=== PATIENT | female | born 1945 | race Caucasian/White ===

== ENCOUNTER → 2016-12-11 | Outpatient (CLI) | payer OTHER ==
[2016-12-11 12:35] LABS: ALT/SGPT 23 U/L (12-78); BLOOD UREA NITROGEN 27 mg/dl (7-18); BUN/CREATININE RATIO 24.4 (10-20); CARBON DIOXIDE 27 mmol/L (21-32); CHLORIDE 106 mmol/L (98-107); CHOLESTEROL 248 mg/dl (0-200); GLUCOSE 89 mg/dl (70-99); SODIUM 140 mmol/L (136-145); TRIGLYCERIDES 100 mg/dl (0-150); VERY LOW DENSITY LIPOPROT CALC 20 mg/dl
[2016-12-11 12:39] LABS: ALB/GLOB RATIO 1.1 (0.9-2); ALKALINE PHOSPHATASE 60 U/L (45-117); AST/SGOT 15 U/L (15-37); CHOLESTEROL/HDL RATIO 3.3; HDL CHOLESTEROL 75 mg/dl; LDL CHOLESTEROL CALCULATED 153 mg/dl
[2016-12-11 12:48] LABS: CALCIUM 9.4 mg/dl (8.5-10.1)
== END | disposition home or self-care (01) ==
LOC: C.LABPBG 09:16
PROVIDERS: ATTEND Family Medicine
DX: E78.5 Hyperlipidemia, unspecified (principal); I12.9 Hypertensive chronic kidney disease with stage 1 through stage 4 chronic kidney disease, or unspecified chronic kidney disease; N18.3 Chronic kidney disease, stage 3 (moderate); Z11.59 Encounter for screening for other viral diseases

== ENCOUNTER → 2017-01-14 | Outpatient (CLI) | payer OTHER | END | disposition home or self-care (01) | LOC: C.MAMM 15:15 | PROVIDERS: ATTEND Nurse Practitioner Adult Health | DX: M85.851 Other specified disorders of bone density and structure, right thigh (principal); M85.852 Other specified disorders of bone density and structure, left thigh ==

== ENCOUNTER → 2017-01-16 | Outpatient (CLI) | payer OTHER | LOC: C.PAPS 16:20 | PROVIDERS: ATTEND Obstetrics & Gynecology | DX: Z12.4 Encounter for screening for malignant neoplasm of cervix (principal) ==

== ENCOUNTER → 2017-06-11 | Outpatient (CLI) | payer OTHER ==
[2017-06-11 12:49] LABS: ALT/SGPT 23 U/L (12-78); AST/SGOT 15 U/L (15-37); BLOOD UREA NITROGEN 24 mg/dl (7-18); BUN/CREATININE RATIO 21.8 (10-20); CALCIUM 9.1 mg/dl (8.5-10.1); CARBON DIOXIDE 28 mmol/L (21-32); CHLORIDE 104 mmol/L (98-107); CREATININE 1.09 mg/dl (0.60-1.20); GLUCOSE 83 mg/dl (70-99); POTASSIUM 3.8 mmol/L (3.5-5.1); SODIUM 138 mmol/L (136-145)
[2017-06-11 12:52] LABS: ALKALINE PHOSPHATASE 58 U/L (45-117); CHOLESTEROL 232 mg/dl (0-200); CHOLESTEROL/HDL RATIO 2.8; HDL CHOLESTEROL 83 mg/dl; LDL CHOLESTEROL CALCULATED 133 mg/dl; TRIGLYCERIDES 78 mg/dl (0-150); VERY LOW DENSITY LIPOPROT CALC 16 mg/dl
== END | disposition home or self-care (01) ==
LOC: C.LABPBG 09:56
PROVIDERS: ATTEND Family Medicine
DX: I12.9 Hypertensive chronic kidney disease with stage 1 through stage 4 chronic kidney disease, or unspecified chronic kidney disease (principal); N18.3 Chronic kidney disease, stage 3 (moderate); E78.5 Hyperlipidemia, unspecified; M19.90 Unspecified osteoarthritis, unspecified site; E55.9 Vitamin D deficiency, unspecified

== ENCOUNTER → 2017-06-27 | Outpatient (CLI) | payer OTHER ==
--- NOTE | 2017-06-27 14:34 | MAMMOGRAPHY REPORT ---
BILATERAL DIGITAL SCREENING MAMMOGRAM WITH CAD: 06/27/2017 CLINICAL HISTORY: Routine screening. TECHNIQUE: Current study was also evaluated with a Computer Aided Detection (CAD) system. Bilateral CC and MLO views were obtained. COMPARISON: Comparison is made to exams dated: 06/25/2016 mammogram, 02/04/2014 mammogram, 02/03/2013 m ammogram, 02/01/2012 mammogram, 03/27/2011 mammogram - [facility], and 10/28/2007. BREAST COMPOSITION: There are scattered areas of fibroglandular density in both breasts. FINDINGS: No suspicious masses, calcifications, or areas of architectural distortion are noted in ei ther breast. There has been no significant interval change compared to prior exams. Scattered bilate ral benign-appearing calcifications are not significantly changed. Round benign-appearing 9 mm mass in the left lateral anterior breast is stable compared to multiple prior exams. Other bilateral asym metries are stable. IMPRESSION: ACR BI-RADS CATEGORY 2: BENIGN There is no mammographic evidence of malignancy. A 1 year screening mammogram is recommended. The pa tient will receive written notification of the results. Approximately 10% of breast cancers are not detected with mammography. A negative mammographic report should not delay biopsy if a clinically suggestive mass is present. Jessica Sellers M.D. ah/:06/27/2017 11:29:29 Nursing Project Coordinator: Layo SEO(Ofelia)(M), [facility] letter sent: Normal 1/2 BI-RADS Code: ACR BI-RADS Category 2: Benign
== END | disposition home or self-care (01) ==
LOC: C.MAMM 09:58
PROVIDERS: ATTEND Family Medicine
DX: Z12.31 Encounter for screening mammogram for malignant neoplasm of breast (principal)

== ENCOUNTER 2020-03-06 19:48 | Observation (INO) ==
[2020-03-06] MEDS ORDERED: DEXAMETHASONE SOD INJ 10 MG/ML VIAL IV ONE (19:58)
[2020-03-06] MEDS ORDERED: FAMOTIDINE 20MG IV PUSH 20 MG/5 ML SYR IV STA (19:58)
[2020-03-06] MEDS ORDERED: DiphenhydrAMINE HCL 50 MG/ML VIAL IV STA (19:58)
[2020-03-06] MEDS ORDERED: SODIUM CHLORIDE 0.9% 250 ML IV PRN (20:14)
--- NOTE | 2020-03-06 20:29 | Emergency Department Note ---
Impression & Plan Angioedema ED Provider Note NAME: EITAN KIRKPATRICK AGE: 74 SEX: F : 1945 ARRIVES VIA: Walk-In INFORMANT: Patient, ED PROVIDER(S): Tramaine Woodard DO CHIEF COMPLAINT: Sore throat HPI: The patient is a 74-year-old female who presented to the emergency department for an evaluation of sore throat. The patient states approximately 2 PM today she started noticing sore throat. Patient also started noticing that her tongue was starting to swell. She denies having any nausea or vomiting. She denies having any chest pain. At this time she states that she has no difficulty breathing but she did have some throat tightness. She states the symptoms have already started to decrease in intensity. She did not take any medications prior to arrival. She did not call her family doctor. The patient states that she has taken no new medications over the last 48 hours. She denies using any NSAIDs recently. The patient does take an SHYAM inhibitor for her blood pressure but she has been taking his medication for many years. ROS: See above HPI for pertinent positives & negatives. A total of 10 systems reviewed and were otherwise negative. PAST MEDICAL HISTORY: See Below PAST SURGICAL HISTORY: See Below FAMILY HISTORY: See Below SOCIAL HISTORY: See Below HOME MEDICATIONS: See Below ALLERGIES: See Below VITALS: See Below PHYSICAL EXAMINATION: GENERAL: Patient is awake alert in no acute distress patient is resting comfortably and showing no signs of anxiety EYES: The conjunctivae are clear. The pupils are round and reactive. EARS, NOSE, MOUTH AND THROAT: Anterior angioedema involving the tongue was noted. The posterior oropharynx appears to be uninvolved at this time. NECK: The neck is nontender and supple. There is anterior tenderness but no swelling. RESPIRATORY: Normal respiratory effort is noted there is no evidence of wheezing rhonchi or rales CARDIOVASCULAR: Regular rate and rhythm noted there no murmurs rubs or gallops normal S1 normal S2. GASTROINTESTINAL: The abdomen is soft. Abdomen is nontender. MUSCULOSKELETAL/EXTREMITIES: There is no evidence of gross deformity full range of motion is noted in the hips and shoulders. SKIN: Pedal edema was noted bilaterally. NEUROLOGIC: Patient is awake alert and oriented x3. MEDICAL DECISION MAKING: The patient is a 74-year-old female who presented to the emergency department w ith sore throat. On physical exam patient was suffering from angioedema. To my evaluation she admitted to no new foods but on evaluation by the hospitalist group she was found to be eating a different brand of nuts. The patient also takes an SHYAM inhibitor. She was treated with steroids Benadryl H2 blockers as well as FFP in the emergency department. She was reevaluated multiple times. The patient's angioedema appears to be stable at this time and is not worsening. I discussed the patient's laboratory and radiographic studies with her. I also discussed some of the causes for angioedema. At this time I do feel the patient may be a good candidate for inpatient management given that she has involvement of her tongue. She was agreeable to this plan. I discussed her case with the on-call [facility] hospitalist group. They have agreed to evaluate the patient in the emergency department for further management and disposition. Triage Nursing notes reviewed. Prior medical records reviewed Vital Signs: reviewed and remarkable for no significant abnormalities Differential diagnosis: Viral syndrome, angioedema, tonsillitis, streptococcal pharyngitis, mononucleosis, peritonsillar abscess, retropharyngeal abscess, otitis, pneumonia, influenza, as well as other pathologies. ER treatment provided: See below Diagnostics interpreted by me: ECG: EKG was obtained in the emergency department. My interpretation is normal sinus rhythm at 66 bpm. LVH was noted by voltage criteria. There is very poor R wave progression. There was a right bundle branch block pattern suggested. No previous EKG was available for comparison. Cardiac Monitoring: An order was placed for continuous cardiac monitoring. The monitor shows a rate of 72 with sinus rhythm. Laboratory studies: As stated above and show below. Imaging studies: See below Consultation(s): I discussed this case with Dr. Strange. He will evaluate the patient in the emergency department for further management and disposition. ED COURSE: Procedures: none PDMP:reviewed and no issues Critical Care: I have personally spent greater than 55 minutes of critical care time in the direct management of this patient. This includes bedside care, interpretation of diagnostic studies, and testing, discussion with consultants, patient, and family members, and other required patient management activities. This 55 minutes is in excess of all separately billable procedures. Past Med/Surg History Medical History BMI 50.0-59.9, adult Carpal tunnel syndrome of right wrist Cholelithiases Elevated sed rate Hyperlipidemia Hypertension Lumbar spinal stenosis Morbid obesity Osteoarthrosis of knee Stage III chronic kidney disease Vitamin D deficiency Surgical History History of cataract surgery B/l EYES History of tubal ligation Hx of breast biopsy OPEN BREAST BIOPSY; BENIGN Family History Father Alzheimer disease Mother Congestive heart failure Son Crohn's disease Other History of cholecystectomy Social History Smoking Status: Never smoker Second Hand Exposure: No; Hx Alcohol Use: No Hx Substance Use: No Preferred Language: Yemeni marital status: Current Living Situation: Spouse current occupational status: retired current occupation: [employer] Feels Safe at Home: Yes Dental Care, Regularly: Yes Seatbelt Use: always Sunscreen Use: No Allergies Allergies Allergy/AdvReac Type Severity Reaction Status Date / Time TETNUS Allergy Severe EXTREME Uncoded 03/06/20 20:44 SWELLING AND REDNESS AT SITE Home Meds Home Medications Medication Instructions Recorded Confirmed acetaminophen 500 mg capsule 500 mg PO TID cap 02/04/19 03/06/20 acetaminophen 650 mg 1,300 mg PO DIRECTED PRN tab 02/04/19 03/06/20 tablet,extended release ascorbic acid (vitamin C) 500 mg 500 mg PO QDD tab 02/04/19 03/06/20 tablet multivitamin 1 tab PO QDD 05/22/19 03/06/20 aspirin [Aspir-81] 81 mg PO QDD 03/06/20 03/06/20 atorvastatin 20 mg PO QDD 03/06/20 03/06/20 calcium carbonate 600 mg PO QDD 03/06/20 03/06/20 lisinopril 10 mg PO QDD 03/06/20 03/06/20 triamterene-hydrochlorothiazid 1 tab PO QDD 03/06/20 03/06/20 Previous Rx's Medication Instructions Recorded walker #1 ea 04/02/19 cyclobenzaprine 5 mg tablet 5 mg PO DAILY PRN #30 tab 05/22/19 tramadol 50 mg tablet 50 mg PO TID PRN #90 tab 05/22/19 Results & Data (ED) Vital Signs Vital Signs - 24 hr 03/06/20 19:50 03/06/20 20:29 03/06/20 21:00 Temperature 36.9 C Temperature Source Oral Pulse Rate 84 61 Pulse Rate [Apical] 67 Pulse Rate from SpO2 Sensor 62 Respiratory Rate 18 19 20 Respiratory Effort / Characteristics Non-Labored Spontaneous Respiratory Depth Normal Blood Pressure 183/91 H 163/78 H Blood Pressure [Left Arm] 168/67 H Blood Pressure Mean 121 104 Blood Pressure Mean [Left Arm] 100 Pulse Oximetry 95 96 98 Oxygen Delivery Method Room Air Room Air Room Air Sepsis Recent Fever Within 48 Hours No Sepsis New/Unexplained Change in Mental Status N/A Sepsis Action Taken by Nursing No Action Required 03/06/20 21:31 03/06/20 22:01 Temperature Temperature Source Pulse Rate 67 65 Pulse Rate [Apical] Pulse Rate from SpO2 Sensor 67 65 Respiratory Rate 20 29 H Respiratory Effort / Characteristics Respiratory Depth Blood Pressure 162/72 H 153/75 H Blood Pressure [Left Arm] Blood Pressure Mean 98 86 Blood Pressure Mean [Left Arm] Pulse Oximetry 98 98 Oxygen Delivery Method Room Air Room Air Sepsis Recent Fever Within 48 Hours Sepsis New/Unexplained Change in Mental Status Sepsis Action Taken by [facility] Medications Current Medication List: was personally reviewed by me Laboratory Data Attestation: I reviewed the patient's lab results. Result diagrams: 03/06/20 20:21 03/06/20 20:21 Lab Results 03/06/20 03/06/20 03/06/20 Range/Units 20:21 20:21 20:21 WBC 6.52 (4.8-10.8) K/uL RBC 4.27 (4.2-5.4) M/uL Hgb 13.0 (12.0-16.0) g/dL Hct 40.6 (37-47) % MCV 95.1 (80-100) fL MCH 30.4 (25-34) pg MCHC 32.0 (32-36) g/dL RDW Std Deviation 44.3 (36.4-46.3) fL RDW Coeff of Brandi 12.9 (11.5-14.5) % Plt Count 219 (130-400) K/uL MPV 9.5 (7.4-10.4) fL Immature Gran % (Auto) 0.2 % Neut % (Auto) 57.1 % Lymph % (Auto) 26.8 % [place] % (Auto) 8.9 % Eos % (Auto) 6.4 % Baso % (Auto) 0.6 % Neut # (Auto) 3.72 (1.4-6.5) K/uL Lymph # (Auto) 1.75 (1.2-3.4) K/uL [place] # (Auto) 0.58 (0.11-0.59) K/uL Eos # (Auto) 0.42 (0-0.5) K/uL Baso # (Auto) 0.04 (0-0.2) K/uL Immature Gran # (Auto) 0.01 (0.00-0.02) K/uL PT 9.9 (9.0-12.0) Seconds INR 0.9 (0.9-1.1) APTT 26.5 (21.0-31.0) Seconds PTT Ratio 0.9 Sodium 141 (136-145) mmol/L Potassium 4.0 (3.5-5.1) mmol/L Chloride 105 (98-107) mmol/L Carbon Dioxide 27 (21-32) mmol/L Anion Gap 9.0 (3-11) BUN 28 H (7-18) mg/dl Creatinine 1.34 H (0.6-1.2) mg/dl Est Cr Clr Drug Dosing 53.7 ml/min Est GFR ( Amer) 45.8 Est GFR (Non-Af Amer) 39.5 BUN/Creatinine Ratio 21.1 H (10-20) Glucose 102 H (70-99) mg/dl Calcium 9.2 (8.5-10.1) mg/dl Total Bilirubin 0.4 (0.2-1) mg/dl AST 19 (15-37) U/L ALT 25 (12-78) U/L Alkaline Phosphatase 69 (45-117) U/L Troponin I 0.029 (0-0.045) ng/ml Total Protein 7.9 (6.4-8.2) gm/dl Albumin 3.7 (3.4-5.0) gm/dl Globulin 4.2 H (2.5-4.0) gm/dl Albumin/Globulin Ratio 0.9 (0.9-2) Lipase 168 (73-393) U/L Blood Type Antibody Screen 03/06/20 Range/Units 20:21 WBC (4.8-10.8) K/uL RBC (4.2-5.4) M/uL Hgb (12.0-16.0) g/dL Hct (37-47) % MCV (80-100) fL MCH (25-34) pg MCHC (32-36) g/dL RDW Std Deviation (36.4-46.3) fL RDW Coeff of Brandi (11.5-14.5) % Plt Count (130-400) K/uL MPV (7.4-10.4) fL Immature Gran % (Auto) % Neut % (Auto) % Lymph % (Auto) % [place] % (Auto) % Eos % (Auto) % Baso % (Auto) % Neut # (Auto) (1.4-6.5) K/uL Lymph # (Auto) (1.2-3.4) K/uL [place] # (Auto) (0.11-0.59) K/uL Eos # (Auto) (0-0.5) K/uL Baso # (Auto) (0-0.2) K/uL Immature Gran # (Auto) (0.00-0.02) K/uL PT (9.0-12.0) Seconds INR (0.9-1.1) APTT (21.0-31.0) Seconds PTT Ratio Sodium (136-145) mmol/L Potassium (3.5-5.1) mmol/L Chloride (98-107) mmol/L Carbon Dioxide (21-32) mmol/L Anion Gap (3-11) BUN (7-18) mg/dl Creatinine (0.6-1.2) mg/dl Est Cr Clr Drug Dosing ml/min Est GFR ( Amer) Est GFR (Non-Af Amer) BUN/Creatinine Ratio (10-20) Glucose (70-99) mg/dl Calcium (8.5-10.1) mg/dl Total Bilirubin (0.2-1) mg/dl AST (15-37) U/L ALT (12-78) U/L Alkaline Phosphatase (45-117) U/L Troponin I (0-0.045) ng/ml Total Protein (6.4-8.2) gm/dl Albumin (3.4-5.0) gm/dl Globulin (2.5-4.0) gm/dl Albumin/Globulin Ratio (0.9-2) Lipase (73-393) U/L Blood Type B Positive Antibody Screen NEGATIVE Administered Medications Discontinued Medications Dexamethasone (Decadron) 10 mg IV NOW ONE Stop: 03/06/20 19:59 Last Admin: 03/06/20 20:30 Dose: 10 mg Documented by: [id number] Diphenhydramine HCl (Benadryl) 25 mg IV NOW STA Stop: 03/06/20 19:59 Last Admin: 03/06/20 20:30 Dose: 25 mg Documented by: [id number] Famotidine (Pepcid 20mg Iv Push) 20 mg in 5 mls @ 2.5 mls/min IV NOW STA Stop: 03/06/20 19:59 Last Admin: 03/06/20 20:30 Dose: 2.5 mls/min Documented by: [id number] Imaging Data Attestation: I personally reviewed and interpreted this imaging study as follows: My Impression: 1 view chest x-ray was obtained in the emergency department. My interpretation is normal heart size. There was some interstitial changes at the right base. No free air was noted. No acute disease. Blood Pressure Blood Pressure Findings: Normal blood pressure Discharge Plan Visit Data *Final* Discharge Date/Time: 03/06/20 23:11 Chief Complaint: Sore Throat Stated Complaint: SWOLLEN TONGUE ED Provider: Tramaine Woodard Discharge Problem: Angioedema Patient Disposition: Admitted As Inpatient Condition: Good Discharge Instructions Interventions: ED Discharge Assessment Last Done: 03/06/20 23:11
[2020-03-06 20:31] LABS: Basophils # (auto) 0.04 K/uL (0-0.2); Basophils % (auto) 0.6 %; Eosinophils # (auto) 0.42 K/uL (0-0.5); Eosinophils % (auto) 6.4 %; Hematocrit (blood only) 40.6 % (37-47); Immature Granulocytes # (auto) 0.01 K/uL (0.00-0.02); Immature Granulocytes % (auto) 0.2 %; Lymphocytes # (auto) 1.75 K/uL (1.2-3.4); Lymphocytes % (auto) 26.8 %; Mean Corpuscular Hemoglobin 30.4 pg (25-34); Mean Corpuscular Volume 95.1 fL (80-100); Mean Platelet Volume 9.5 fL (7.4-10.4); Monocytes # (auto) 0.58 K/uL (0.11-0.59); Monocytes % (auto) 8.9 %; Neutrophils # (auto) 3.72 K/uL (1.4-6.5); Neutrophils % (auto) 57.1 %; Platelet Count 219 K/uL (130-400); RDW Coefficient of Variation 12.9 % (11.5-14.5); RDW Standard Deviation 44.3 fL (36.4-46.3); Red Blood Count 4.27 M/uL (4.2-5.4); White Blood Count 6.52 K/uL (4.8-10.8)
[2020-03-06 20:46] LABS: INR 0.9 (0.9-1.1); Partial Thromboplastin Ratio 0.9; Partial Thromboplastin Time 26.5 Seconds (21.0-31.0); Prothrombin Time 9.9 Seconds (9.0-12.0)
[2020-03-06 20:50] LABS: Albumin Level 3.7 gm/dl (3.4-5.0); BUN Creatinine Ratio 21.1 (10-20); Calcium 9.2 mg/dl (8.5-10.1); Creatinine Clr Calc Pharmacy 53.7 ml/min; Est GFR (African American) 45.8; Est GFR (Non-African American) 39.5
[2020-03-06 20:55] LABS: Albumin Globulin Ratio 0.9 (0.9-2); Bilirubin,Total 0.4 mg/dl (0.2-1); Globulin 4.2 gm/dl (2.5-4.0); Total Protein 7.9 gm/dl (6.4-8.2); Troponin I 0.029 ng/ml (0-0.045)
--- NOTE | 2020-03-06 21:57 | History & Physical Report ---
Date of Service March 06, 2020 Assessment & Plan (1) Angioedema: Britney Fitzgerald is a 74-year-old female with a past medical history of intermittent elevated sed rate, hypertension, hyperlipidemia and 3 prior episodes of lip swelling who presents with concern for angioedema improved by time of assessment. Angioedema Patient reports swelling in the tongue and sore throat, no wheezing or difficulty breathing Return to normal baseline at time of assessment. Received famotidine, Decadron, diphenhydramine on entry to emergency department Given prior history of intermittent angioedema with unclear cause will draw C1q level Patient is on lisinopril chronically and had peanut butter, but has been on lisinopril for many years and eats peanut powder regularly with no problems. Lisinopril held, may consider converting to losartan versus low-dose of amlodipine, however suspect that this is highly unlikely to be the cause Solu-Medrol 60 mg x 1 overnight, repeat Benadryl x1 overnight 5-day prednisone course 20 mg tomorrow Recommend following up with allergy as an outpatient for skin scratch testing Hypertension Continue triamterene/hydrochlorothiazide Lisinopril held Hyperlipidemia Continue atorvastatin DVT prophylaxis: SCDs, enoxaparin Diet: Regular, avoid tree nuts Disposition: MedSurg for observation (2) Osteoarthrosis of knee: (3) Morbid obesity: (4) Hypertension: (5) Hyperlipidemia: (6) Elevated sed rate: (7) Cholelithiases: History of Present Illness Chief Complaint: Angioedema Primary Care Provider: Jennifer Harvey DO Britney Fitzgerald is a 74-year-old female with a past medical history of CKD, hypertension, hyperlipidemia and intermittently elevated ESR who presented with an episode of angioedema. She reports that she had had peanut butter with a rice cake for breakfast, and a sandwich for lunch day of admission. She reports that around 3:00 in the afternoon she noticed a sudden onset swelling on the left side of her tongue. She has had similar episodes 3 times over the past 2 years of similar swelling in her lips of unknown cause. She started to get a sore throat, and her son recommended she go to the emergency department for evaluation around 6:30 PM. She notes that by the time that she was going to the emergency department around 6 PM her symptoms had already started to improve and the swelling in her tongue was decreasing. She has not had any new medications, or any medication changes in the last month. She has not used any NSAIDs in the past month. She is not sure what set off her similar episodes in the past. She reports she had peanut butter in the morning, but eats peanut butter regularly and normally does not have a problem. No bee stings or other new exposures. She denies any chest pain, chest pressure, difficulty breathing, shortness of breath, wheezing, fever, chills, diarrhea, constipation, or other new symptoms. Medical history: Reviewed Medications: Reviewed Allergies: Reviewed Surgical history: Reviewed Social: Rare former tobacco use, denies alcohol use, no recreational drug use. Lives at home with her and no problems with ambulation. CODE STATUS: Full code Allergies Allergy/AdvReac Type Severity Reaction Status Date / Time lisinopril Allergy Intermediate Angioedema Verified 03/07/20 13:48 TETNUS Allergy Severe EXTREME Uncoded 03/06/20 20:44 SWELLING AND REDNESS AT SITE Home Medications Home Medications Medication Instructions Recorded Confirmed Type acetaminophen 500 mg capsule 500 mg PO TID cap 02/04/19 03/06/20 History acetaminophen 650 mg 1,300 mg PO DIRECTED PRN tab 02/04/19 03/06/20 History tablet,extended release ascorbic acid (vitamin C) 500 mg 500 mg PO QDD tab 02/04/19 03/06/20 History tablet walker #1 ea 04/02/19 Rx cyclobenzaprine 5 mg tablet 5 mg PO DAILY PRN #30 tab 05/22/19 03/06/20 Rx multivitamin 1 tab PO QDD 05/22/19 03/06/20 History tramadol 50 mg tablet 50 mg PO TID PRN #90 tab 05/22/19 03/06/20 Rx aspirin [Aspir-81] 81 mg PO QDD 03/06/20 03/06/20 History atorvastatin 20 mg PO QDD 03/06/20 03/06/20 History calcium carbonate 600 mg PO QDD 03/06/20 03/06/20 History triamterene-hydrochlorothiazid 1 tab PO QDD 03/06/20 03/06/20 History cetirizine 10 mg PO QAM #30 tab 03/07/20 Rx losartan 25 mg PO QAM #30 tab 03/07/20 Rx prednisone 40 mg PO QAM 7 Days #8 tab 03/07/20 Rx Past Med/Surg History Medical History BMI 50.0-59.9, adult Carpal tunnel syndrome of right wrist Cholelithiases Elevated sed rate Hyperlipidemia Hypertension Lumbar spinal stenosis Morbid obesity Osteoarthrosis of knee Stage III chronic kidney disease Vitamin D deficiency Surgical History History of cataract surgery B/l EYES History of tubal ligation Hx of breast biopsy OPEN BREAST BIOPSY; BENIGN Family History Father Alzheimer disease Mother Congestive heart failure Son Crohn's disease Other History of cholecystectomy Social History Smoking Status: Never smoker Second Hand Exposure: No; Hx Alcohol Use: No Hx Substance Use: No Preferred Language: Macedonian Communication Ability: Effective Cook Seafood Required: No Beliefs That Will Affect Care: None marital status: Current Living Situation: Spouse Current Living Situation Comment: in a house current occupational status: retired current occupation: [employer] Feels Safe at Home: Yes Dental Care, Regularly: Yes Seatbelt Use: always Sunscreen Use: No Review of Systems Review of Systems: Constitutional: Denies fever, chills, malaise Eyes: Denies double vision, vision change, eye pain ENT: Denies ear pain, sore throat, sinus pain Cardiovascular: Denies Chest pain, chest pressure, palpitations, extremity swelling Respiratory: See HPI Gastrointestinal: Denies abdominal pain, nausea, vomiting, constipation, diarrhea Genitourinary: Denies pain with urination, urinary urgency Musculoskeletal: Denies weakness, muscle aches/pain, joint aches/pain Integumentary:Denies rash, lesions, bruising Neurological: Denies headache, numbness, tingling Physical Exam Physical Exam: General: A&Ox3. NAD. Cooperative. Obese. Skin: No rashes/urticaria/soft tissue edema appreciated. HEENT: Atraumatic, normocephalic. At time of assessment no angioedema of the lip, throat, or tongue is appreciated. Equals equal and reactive to light and accommodation. Visual acuity grossly intact. Pulm: CTAB A&P. -wheezes, -rales, -rhonchi. Symmetrical chest rise. No increase work of breathing. No respiratory distress. Cardiac: RRR, -mrg. Radial pulses intact and symmetrical. Abdominal: Nontender, nondistended, soft. BS present. Extremities: No pitting edema, sensation intact in all 4 extremities, medical record consultant strength intact and symmetrical, ankle plantar flexion/dorsiflexion intact and symmetrical. Results & Data Results & Data ([facility]) Vital Signs (Past 12 Hours) Vital Signs Temp Pulse Pulse Resp BP BP Pulse Ox 03/06/20 21:31 67 20 162/72 H 98 03/06/20 21:00 61 20 163/78 H 98 03/06/20 20:29 67 19 168/67 H 96 03/06/20 19:50 36.9 C 84 18 183/91 H 95 Supervising Physician Co-Signing Physician Notes Attending addendum: I have physically seen this patient, have supervised the medical residents activities, and agree with the H&P unless as otherwise noted. Assessment and Plan: Dysphagia/patient reported swelling of tongue and sore throat- Symptoms have resolved prior to patient's arrival in ED. Patient reports 3 episodes in the past 5 years. We will hold lisinopril, but unlikely the cause. Patient did have a different brand of peanuts the morning of her symptoms. Patient needs to have skin testing for allergy. Received Decadron 10 mg IV, Benadryl 25 mg IV, famotidine 20 mg IV from the ED as prophylaxis for return, the symptoms had resolved prior to arrival. Placed on Solu-Medrol 60 mg IV x1 overnight and Benadryl 50 mg IV x1 overnight. Patient admitted to monitored bed overnight. Recommend follow-up with allergy and immunology in the outpatient setting Remaining orders and notations as noted. Resident Activity Tracking Resident Involvement: Resident Care Provided Care Provided: Adult Hospital Medicine
[2020-03-06] MEDS ORDERED: POLYETHYLENE (MIRALAX) 17 GM PACK PO PRN (23:38)
[2020-03-06] MEDS ORDERED: ACETAMINOPHEN 1300 MG PO PRN (23:38)
[2020-03-06] MEDS ORDERED: CYCLOBENZAPRINE HCL 5 MG TAB PO PRN (23:38)
[2020-03-06] MEDS ORDERED: TRAMADOL HCL 50 MG TABLET PO PRN (23:38)
[2020-03-07] MEDS ORDERED: ACETAMINOPHEN 325 MG TAB PO PRN (02:46)
[2020-03-07] MEDS ORDERED: methylPREDNISolone 125 MG/2 ML VIAL IV ONE (03:00)
[2020-03-07] MEDS ORDERED: methylPREDNISolone 60 MG in SYRINGE 0 ML IV ONE (03:00)
[2020-03-07] MEDS ORDERED: DiphenhydrAMINE HCL 50 MG/ML VIAL IV ONE (03:00)
--- NOTE | 2020-03-07 07:17 | XRay Report ---
SINGLE VIEW CHEST CLINICAL HISTORY: Atypical chest pain. FINDINGS: An AP, portable, upright chest radiograph is obtained. No prior studies are available for c omparison at the time of dictation. The cardiomediastinal silhouette is unremarkable noting atherosc lerotic calcification of the thoracic aorta. There is mild bibasilar atelectasis. The lungs and pleur al spaces are otherwise clear. No pneumothorax is seen. The skeletal structures are osteopenic. The b diane thorax is grossly intact. IMPRESSION: No acute cardiopulmonary abnormality. ACT 112: Negative or not required by law. Electronically signed by: Gilbert Monroy M.D. 03/07/2020 7:16 AM
[2020-03-07 07:25] LABS: Hemoglobin 13.2 g/dL (12.0-16.0); Lymphocytes # (auto) 0.62 K/uL (1.2-3.4); Lymphocytes % (auto) 12.4 %; Mean Corpuscular Hemoglobin 30.6 pg (25-34); Mean Corpuscular Volume 92.8 fL (80-100); Mean Platelet Volume 9.4 fL (7.4-10.4); Monocytes # (auto) 0.02 K/uL (0.11-0.59); Monocytes % (auto) 0.4 %; Neutrophils # (auto) 4.34 K/uL (1.4-6.5); Neutrophils % (auto) 87.2 %; Platelet Count 205 K/uL (130-400); RDW Coefficient of Variation 12.7 % (11.5-14.5); RDW Standard Deviation 43.2 fL (36.4-46.3); Red Blood Count 4.31 M/uL (4.2-5.4); White Blood Count 4.98 K/uL (4.8-10.8)
[2020-03-07 07:51] LABS: Calcium 9.7 mg/dl (8.5-10.1); Creatinine Clr Calc Pharmacy 58.7 ml/min; Est GFR (African American) 49.8; Est GFR (Non-African American) 42.9; Potassium 4.3 mmol/L (3.5-5.1)
[2020-03-07] MEDS ORDERED: predniSONE 20 MG TAB PO SCH (09:00)
[2020-03-07] MEDS ORDERED: FAMOTIDINE 20 MG in SYRINGE 3 ML IV SCH (09:00)
--- NOTE | 2020-03-07 12:08 | Allergy & Immunology Consult ---
Date of Consultation March 07, 2020 Assessment & Plan (1) Angioedema: Patient presents with recurrent episodes of angioedema that has been occurring very intermittently without any specific triggers. The differential diagnosis would include Leonides inhibitor induced angioedema, idiopathic angioedema, acquired angioedema. 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 Patients can be one of these for many years before developing an episode. These episodes tend to be almost exclusively in the head and area and often involve lip and tongue swelling. Episodes can occur very intermittently, as Leonides inhibitors lower the threshold for swelling. Patients with underlying idiopathic angioedema are thus a risk of Leonides inhibitors worsening this. As result, would discontinue her LEONIDES inhibitor, though ARBs would be fine to use. The best way to distinguish acquired versus idiopathic and Leonides inhibitor induced would be with a C4 level. if this has not already been drawn, I will check this as an outpatient. I will also check a tryptase, as mast cell disorders can be seen in patients with chronic kidney disease, and these can present with idiopathic angioedema episodes. I will also check a TSH, this patients with thyroid disorders can have random episodes of hives or swelling. However, her last Level in 2019 was okay, so this is very low down on the list of differentials. In terms of management, I recommend that her Prednisone be tapered off. I would recommend putting her on the following taper: the 40 mg x 2 days, 30 mgx2 days, 20 mg x2 days, 10 mgx2 days. As she was treated with a dose of Solu- Medrol in hospital, there is risk of rebound angioedema if steroids are tapered too quickly. I would also recommend putting her on cetirizine 10 milligrams daily, as this should protect her from episodes of for idiopathic angioedema until we can see her in clinic within next week or two. I will take care of setting this up. From my standpoint, it would be safe to discharge her today. History of Present Illness Attending Physician: Dennise Escobar MD History of Present Illness This is a 74 year old female who presents with recurrent angioedema of lips and tongue. She reports that she had had peanut butter with a rice cake for breakfast, and a steak hoagie sandwich for lunch day of admission. She had eaten both these many times before, that she did change brand to peanut butter about two months ago. She had eaten most of the container without any problems. She also had this sandwich before without any problems. She did not have anything out of the ordinary on it. She reports that around 3:00 in the afternoon she noticed a sudden onset swelling on the left side of her tongue. She has had similar episodes 3 times over the past 2 years of similar swelling in her lips of unknown cause. She started to get a sore throat, and her son recommended she go to the emergency department for evaluation around 6:30 PM. She notes that by the time that she was going to the emergency department around 6 PM her symptoms had already started to improve and the swelling in her tongue was decreasing. She has not had any new medications, or any medication changes in the last month. She has not used any NSAIDs in the past month. She is not sure what set off her similar episodes in the past. She reports she had peanut butter in the morning, but eats peanut butter regularly and normally does not have a problem. No bee stings or other new exposures.chest pain. At this time she states that she has no difficulty breathing but she did have some throat tightness. She states the symptoms have already started to decrease in intensity. She did not take any medications prior to arrival. She did not call her family doctor. The patient states that she has taken no new medications over the last 48 hours. She denies using any NSAIDs recently. The patient does take an LEONIDES inhibitor for her blood pressure but she has been taking his medication for many years. she was treated with Solu-Medrol and antihistamine, and the swelling has gone away completely by today. Her only medication allergy is to tetanus which led to a site reaction after injection. Allergies Allergy/AdvReac Type Severity Reaction Status Date / Time TETNUS Allergy Severe EXTREME Uncoded 03/06/20 20:44 SWELLING AND REDNESS AT SITE Home Medications Home Medications Medication Instructions Recorded Confirmed Type acetaminophen 500 mg capsule 500 mg PO TID cap 02/04/19 03/06/20 History acetaminophen 650 mg 1,300 mg PO DIRECTED PRN tab 02/04/19 03/06/20 History tablet,extended release ascorbic acid (vitamin C) 500 mg 500 mg PO QDD tab 02/04/19 03/06/20 History tablet walker #1 ea 04/02/19 Rx cyclobenzaprine 5 mg tablet 5 mg PO DAILY PRN #30 tab 05/22/19 03/06/20 Rx multivitamin 1 tab PO QDD 05/22/19 03/06/20 History tramadol 50 mg tablet 50 mg PO TID PRN #90 tab 05/22/19 03/06/20 Rx aspirin [Aspir-81] 81 mg PO QDD 03/06/20 03/06/20 History atorvastatin 20 mg PO QDD 03/06/20 03/06/20 History calcium carbonate 600 mg PO QDD 03/06/20 03/06/20 History lisinopril 10 mg PO QDD 03/06/20 03/06/20 History triamterene-hydrochlorothiazid 1 tab PO QDD 03/06/20 03/06/20 History Patient History Medical History BMI 50.0-59.9, adult Carpal tunnel syndrome of right wrist Cholelithiases Elevated sed rate Hyperlipidemia Hypertension Lumbar spinal stenosis Morbid obesity Osteoarthrosis of knee Stage III chronic kidney disease Vitamin D deficiency Surgical History History of cataract surgery B/l EYES History of tubal ligation Hx of breast biopsy OPEN BREAST BIOPSY; BENIGN Family History Father Alzheimer disease Mother Congestive heart failure Son Crohn's disease Other History of cholecystectomy Social History Smoking Status: Never smoker Second Hand Exposure: No; Hx Alcohol Use: No Hx Substance Use: No Preferred Language: Kazakh Communication Ability: Effective 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 Head: normal in appearance Ears: tympanic membranes clear bilaterally Eyes: sclera anicteric, no conjunctival injection Nose: nasal mucosa without edema, without erythema, without bogginess Throat: oropharynx clear, no cobblestoning, tonsil exam unremarkable Neck and lymphatics: without lymphadenopathy or thyromegaly. Trachea Midline. No masses appreciated. Cardiovascular: regular rate and rhythm, normal S1 and S2. No murmurs, rubs, gallops appreciated. Lungs: Clear to auscultation bilaterally. No wheezing, rhonchi, crackles. Abdomen: Soft, non-tender, normal bowel sounds. Peripheral vascular and extremities: no cyanosis, clubbing, edema. Skin: normal in appearance. No rashes or lesions visualized. Results & Data Vital Signs (Past 12 Hours) Vital Signs Temp Pulse Pulse Resp BP BP Pulse Ox 03/07/20 07:21 36.6 C 64 18 142/71 H 94 03/07/20 01:32 36.7 C 64 64 16 133/68 133/68 94 03/07/20 00:59 36.5 C 73 16 150/72 H 94 03/07/20 00:29 36.4 C L 67 16 146/73 H 93 Coding Level of Care Code 55217 Initial Inpt Care Lvl 2 Diagnoses Angioedema T78.3XXA Encounter type: initial encounter (1) Angioedema Encounter type: initial encounter Qualified Code(s): T78.3XXA - Angioneurotic edema, initial encounter
[2020-03-07] MEDS ORDERED: predniSONE 20 MG TAB PO STA (13:00)
[2020-03-07] MEDS ORDERED: CETIRIZINE HCL 10 MG TABLET PO SCH (13:00)
--- NOTE | 2020-03-07 13:52 | Discharge Summary ---
Date of Service March 07, 2020 Admission HPI Per Admitting Provider Britney Fitzgerald is a 74-year-old female with a past medical history of CKD, hypertension, hyperlipidemia and intermittently elevated ESR who presented with an episode of angioedema. She reports that she had had peanut butter with a rice cake for breakfast, and a sandwich for lunch day of admission. She reports that around 3:00 in the afternoon she noticed a sudden onset swelling on the left side of her tongue. She has had similar episodes 3 times over the past 2 years of similar swelling in her lips of unknown cause. She started to get a sore throat, and her son recommended she go to the emergency department for evaluation around 6:30 PM. She notes that by the time that she was going to the emergency department around 6 PM her symptoms had already started to improve and the swelling in her tongue was decreasing. She has not had any new medications, or any medication changes in the last month. She has not used any NSAIDs in the past month. She is not sure what set off her similar episodes in the past. She reports she had peanut butter in the morning, but eats peanut butter regularly and normally does not have a problem. No bee stings or other new exposures. She denies any chest pain, chest pressure, difficulty breathing, shortness of breath, wheezing, fever, chills, diarrhea, constipation, or other new symptoms. Medical history: Reviewed Medications: Reviewed Allergies: Reviewed Surgical history: Reviewed Social: Rare former tobacco use, denies alcohol use, no recreational drug use. Lives at home with her and no problems with ambulation. CODE STATUS: Full code Principal Diagnosis Angioedema, possibly ACEi-induced Discharge Exam Constitutional WD/WN, vitals as above + morbidly obese Eyes PERRL, conjunctivae normal, anicteric sclerae ENMT external ear and nose normal, oropharynx normal no further lip or tongue swelling Neck trachea midline, no thyromegaly Respiratory normal respiratory effort, lungs clear to auscultation Cardiovascular RRR, no murmur, no edema Chest (Breasts) Chest: normal inspection of chest Gastrointestinal (Abdomen) normal bowel sounds, soft, nontender, no hepatosplenomegaly Musculoskeletal Extremities: extremities normal to inspection; no cyanosis and no clubbing Skin no rashes, warm and dry Neurologic moves all extremities and awake; no focal motor deficits Psychiatric A+Ox3, euthymic affect Lymphatic no lymphedema Discharge Data Allergies Allergy/AdvReac Type Severity Reaction Status Date / Time lisinopril Allergy Intermediate Angioedema Verified 03/07/20 13:48 TETNUS Allergy Severe EXTREME Uncoded 03/06/20 20:44 SWELLING AND REDNESS AT SITE Consultations 03/06/20 21:14 ED Decision to Admit Stat 03/07/20 09:58 Consult Allergy / Immunology Routine Ordered Studies CXR Hospital Course (1) Angioedema: Britney Fitzgerald is a 74-year-old female with a past medical history of intermittent elevated sed rate, hypertension, hyperlipidemia and 3 prior episodes of lip swelling who presents with concern for angioedema improved by time of admission Angioedema Patient reports swelling in the tongue and sore throat, no wheezing or difficulty breathing Received famotidine, Decadron, diphenhydramine on entry to emergency department and was continued on prednisone, Pepcid after admission Lisinopril was discontinued Allergy/Immunology consulted and thinks most likely due to the ACEi. Will give prednisone taper down over the next week, start Zyrtec 10mg daily, and he will check a C4 level,TSH, and tryptase as an outpatient Ok to discharge as is now completely resolved -ok to start losartan as per Allergy to replace lisinopril Hypertension dc lisinopril as above -start losartan 25mg po qAM tomorrow continue HCTZ/triamterene Hyperlipidemia Continue atorvastatin DVT prophylaxis: SCDs, enoxaparin Diet: Regular, avoid tree nuts Disposition: stable for dc to home (2) Osteoarthrosis of knee: (3) Morbid obesity: (4) Hypertension: (5) Hyperlipidemia: (6) Elevated sed rate: (7) Cholelithiases: Total Time Total Time Spent Total Time Spent (In Minutes): >30 min Total Time Includes: Examination of the Patient, Discharge Planning and Medication Reconciliation Discharge Plan Discharge Items Patient Disposition: Home - Self-Care Reason For Visit: ANGIOEDEMA Discharge Diagnosis: Angioedema, possibly secondary to lisinopril Condition on Discharge: Good Activity: Resume your previous activity Non-emergency contact: Primary Care Provider and Specialist Call non-emergency contact if: you have any medication questions and your symptoms worsen Follow-up/Referrals: Jennifer Harvey DO [Primary Care Provider] - (Please follow up within 1-2 weeks.) Nathan Rosario MD [Physician] - 03/11/20 3:30 pm (You have an appointment with Dr. Rosario on SaturdayMarch 11 at 3:30. If you can not keep this appointment please call [phone].) Diet: Heart Healthy Addtl Attending Provider Instructions: Please take the prednisone taper as prescribed, as well as the Zyrtec (antihistamine) once daily. You will STOP taking lisinopril as this may be causing your lips and tongue to swell. Instead, for your blood pressure, you will start on losartan 25mg once daily. Dr. Harvey may need to increase the dose of this in the future, but please start at this low dose for now. Pending Studies at Discharge: No Stand-Alone Forms: My [facility] Medications and DC Order Prescriptions: New cetirizine 10 mg Tablet 10 mg PO QAM Qty: 30 RF: 0 prednisone 20 mg Tablet 40 mg PO QAM 7 Days Qty: 8 RF: 0 losartan 25 mg Tablet 25 mg PO QAM Qty: 30 RF: 0 Continued acetaminophen 500 mg capsule 500 mg PO TID RF: 0 ascorbic acid (vitamin C) 500 mg tablet 500 mg PO QDD RF: 0 (DME) [facility] [place] See Dose Instructions .ROUTE .MEDSUPPLY Qty: 1 RF: 0 acetaminophen 650 mg tablet extended release 1,300 mg PO DIRECTED PRN (Reason: Pain) RF: 0 multivitamin [Daily Multi-Vitamin] tablet 1 tab PO QDD RF: 0 cyclobenzaprine 5 mg tablet 5 mg PO DAILY PRN (Reason: muscle spasm) Qty: 30 RF: 1 tramadol 50 mg tablet 50 mg PO TID PRN (Reason: pain) Qty: 90 RF: 0 aspirin [Aspir-81] 81 mg Tablet,Delayed Release (Dr/Ec) 81 mg PO QDD RF: 0 atorvastatin 20 mg tablet 20 mg PO QDD RF: 0 calcium carbonate 600 mg calcium (1,500 mg) tablet 600 mg PO QDD RF: 0 triamterene-hydrochlorothiazid 37.5-25 mg tablet 1 tab PO QDD RF: 0 Discontinued lisinopril 10 mg tablet 10 mg PO QDD RF: 0 Discharge Orders: Discharge Order (Routine); Ordered 03/07/20 Ordered By: Dennise B. Tussey Admission Data Admit Date/Time: 03/06/20 22:02 Attending Provider: Dennise Escobar Admit Provider: Dennis Mcclelland Primary Care Provider: Jennifer Harvey Other Providers: Daniel Lockhart ; Nathan Rosario Coding Level of Care Code 99414 OBS Care - Discharge Diagnoses Angioedema T78.3XXA Osteoarthrosis of knee M17.10 Morbid obesity E66.01 Hypertension I10 Hyperlipidemia E78.5 Elevated sed rate R70.0 Cholelithiases K80.20
[2020-03-07] MEDS ORDERED: TRIAMTERENE/HCTZ 37.5/25MG TAB PO SCH (16:30)
[2020-03-07] MEDS ORDERED: CALCIUM 600MG + VIT D 400 IU TAB PO SCH (16:30)
[2020-03-07] MEDS ORDERED: ASCORBIC ACID 500 MG TAB PO SCH (16:30)
[2020-03-07] MEDS ORDERED: ATORVASTATIN 20 MG TAB PO SCH (16:30)
[2020-03-07] MEDS ORDERED: ASPIRIN 81 MG ECTAB PO SCH (16:30)
[2020-03-07] MEDS ORDERED: MULTIVITAMIN TAB PO SCH (16:30)
--- NOTE | 2020-03-07 19:11 | Electrocardiogram Report ---
Test Reason : Blood Pressure : / mmHG Vent. Rate : 066 BPM Atrial Rate : 066 BPM P-R Int : 200 ms QRS Dur : 138 ms QT Int : 426 ms P-R-T Axes : 042 -55 027 degrees QTc Int : 446 ms Normal sinus rhythm Right bundle branch block Left anterior fascicular block Bifascicular block Moderate voltage criteria for LVH, may be normal variant Possible Lateral infarct , age undetermined Abnormal ECG No previous ECGs available Confirmed by Jorge Best ([id number]) on 03/07/2020 7:10:49 PM Referred By: REFERRED SELF Confirmed By:Jorge Best
[2020-03-07] MEDS ORDERED: ENOXAPARIN INJ 40 MG/0.4 ML SYR SQ SCH (22:00)
--- NOTE | 2020-03-08 00:45 | Billing Data ---
Date of Service March 08, 2020 Coding Level of Care Code 48597 OBS Care - Level 3
[2020-03-08] MEDS ORDERED: LOSARTAN POTASSIUM 25 MG TAB PO SCH (09:00)
[2020-03-08] MEDS ORDERED: predniSONE 20 MG TAB PO SCH (09:00)
== END 2020-03-07 15:24 | disposition home or self-care (01) ==
LOC: 2W 19:48 → ED 19:48 → SUATTDRO 22:02 → 2W 23:11